=== PATIENT | female | born 1955 | race Caucasian/White ===

== ENCOUNTER 2021-02-18 06:38 | Outpatient (CLI) | payer BC ==
[2021-02-18] VITALS (7 sets, daily range): BP systolic 123–145; BP diastolic 59–72; PULSE 65–78; TEMP 98.1
[~2021-02-18] VITALS: Ht 160 cm; Wt 73.5 kg
[~2021-02-18 06:38] MED LIST: ANIMAL SHAPES1 CT2 PO; FLONASEALLERGY NS; MAG; MEVACOR40 MG PO; MOTRIN 400400 MG/TAB PO; NORVASC 5MG5 MG/TAB PO; RESTORIL 1515 MG/CAP PO; SUDAFED30 MG PO; TRULANCE3 MG PO; XYZAL5 MG PO
--- NOTE | 2021-02-18 08:50 | NUR ---
Pt assisted up to restroom with steady gait. She has called friend for ride home. No c/o headache. She's tolerated PO fluids without issue. DC instructions reviewed, she expresses understanding.
--- NOTE | 2021-02-18 09:05 | NUR ---
Pt assisted out to friend's car by wheelchair with belongings.
[2021-02-18 09:11] LABS: GLUCOSE,CSF 60 mg/dL (40-70)
[2021-02-18 10:07] LABS: CSF APPEARANCE CLEAR; CSF COLOR COLORLESS; CSF RBC 0 /mm3 (0-0)
[2021-02-18 10:26] LABS: CSF MONONUCLEAR 100 % (70-100); CSF POLYMORPHONUCLEAR 0 % (0-6)
[2021-02-18 16:26] LABS: IMMUNOGLOBULIN G 909 mg/dL (552-1631)
[2021-02-23 14:12] LABS: CSF OLIG BD INTERPRETATION 0 bands (<2); SE OLIGOCLONAL BANDING 1 bands (())
== END 2021-02-18 09:10 | disposition home or self-care (01) ==
LOC: COL.RAD 06:38
PROVIDERS: Psychiatry & Neurology Neurology
DX: G93.9 Disorder of brain, unspecified (principal); R93.89 Abnormal findings on diagnostic imaging of other specified body structures